=== PATIENT | female | born 1990 ===

== ENCOUNTER 2019-04-25 20:04 | Inpatient (IN) | payer OTHER ==
[2019-04-25 21:33] LABS: BASO % 0.3 % (0-2.0); EOS % 3.1 % (0-4.5); HEMATOCRIT 37.7 % (32.4-45.2); HEMOGLOBIN 12.6 GM/dL (10.7-15.3); LYMPH % 12.5 % (8-40); MCH 28.5 pg (25.7-33.7); MCHC 33.3 g/dl (32.0-36.0); MEAN CELL VOLUME 85.6 fl (80-96); MEAN PLT VOLUME 8.9 fl (7.5-11.1); MONO % 6.9 % (3.8-10.2); NEUT % 77.2 % (42.8-82.8); PLATELET COUNT 250 K/MM3 (134-434); RDW 15.2 % (11.6-15.6); RETICULOCYTES 2.35 % (0.5-1.5); WHITE BLOOD COUNT 11.3 K/mm3 (4.0-10.0)
[2019-04-25 21:45] LABS: INR 0.97 (0.83-1.09); PROTHROMBIN TIME (PATIENT) 11.5 SEC (9.7-13.0)
[2019-04-25 21:47] LABS: ACTIVATED PTT 29.4 SECONDS (25.2-36.5)
[2019-04-25 22:00] LABS: BLOOD UREA NITROGEN 6.9 mg/dL (7-18); CALCIUM 8.7 mg/dL (8.5-10.1); CREATININE 0.5 mg/dL (0.55-1.3); POTASSIUM 4.1 mmol/L (3.5-5.1); URIC ACID 3.1 mg/dL (2.6-7.2)
[2019-04-25 22:41] VITALS: BMI 39.0
[2019-04-25 22:53] LABS: PH,URINE 6.5 (5.0-8.0); URINE APPEARANCE CLEAR; URINE BILIRUBIN NEGATIVE (NEGATIVE); URINE COLOR YELLOW; URINE GLUCOSE (UA) NEGATIVE (NEGATIVE); URINE KETONE NEGATIVE (NEGATIVE); URINE LEUK ESTERASE NEGATIVE (NEGATIVE); URINE NITRITE NEGATIVE (NEGATIVE); URINE PROTEIN TRACE (NEGATIVE); URINE UROBILINOGEN 0.2 mg/dL (0.2-1.0)
[2019-04-26] MEDS ORDERED: ELECTROLYTE-148 SOLN 500 ML IV ONE (06:00)
[2019-04-26] MEDS ORDERED: CITRIC ACID/SODIUM CITRATE 30 ML UNIT-DOSE CUP PO ONE (06:00)
[2019-04-26] MEDS ORDERED: ELECTROLYTE-148 SOLN 1,000 ML IV SCH ×2 (06:30→11:15)
[2019-04-26] MEDS ORDERED: ACETAMINOPHEN 325 MG TABLET (FP) ONE (07:34)
[2019-04-26] MEDS ORDERED: PHENYLEPHRINE HCL 10 MG/1 ML SINGLE DOSE VIAL ONE ×2 (08:27→09:01)
[2019-04-26] MEDS ORDERED: morphine SULFATE/PF 0.5 MG/ML (2cc Syringe - QUVA) ONE (08:28)
[2019-04-26] MEDS ORDERED: CLINDAMYCIN PHOSPHATE 600 MG/4 ML VIAL ONE (08:45)
[2019-04-26] MEDS ORDERED: ONDANSETRON 4 MG/2 ML VIAL IVPUSH PRN (08:54)
[2019-04-26] MEDS ORDERED: OXYTOCIN 10 UNITS/ML VIAL ONE ×2 (09:00→09:01)
[2019-04-26] MEDS ORDERED: ePHEDrine SULFATE 50 MG/1 ML AMPULE ONE (09:01)
[2019-04-26] MEDS ORDERED: MIDAZOLAM HCL 2 MG/2 ML SINGLE DOSE VIAL ONE (09:08)
[2019-04-26] MEDS: OXYTOCIN 20 UNITS in 0.9% NS 20 UNIT/1,000 ML INFUS.BAG IV SCH ×2 (10:00→18:40)
[2019-04-26] MEDS ORDERED: OXYTOCIN 20 UNITS in 0.9% NS 20 UNIT/1,000 ML INFUS.BAG IV ONE (10:32)
[2019-04-26] MEDS ORDERED: METHYLERGONOVINE MALEATE 0.2 MG/1 ML AMP IM PRN (11:04)
[2019-04-26] MEDS ORDERED: oxyCODONE HCL 5 MG TABLET PO PRN ×2 (11:14)
[2019-04-26] MEDS ORDERED: ACETAMINOPHEN 325 MG TABLET (FP) PO PRN (11:14)
--- NOTE | 2019-04-26 11:20 | HP ---
Past Medical History - Admission Chief Complaint: high blood pressure , headache severe x 4 days History of Present Illness: mild pre eclampsia History Source: Patient Limitations to Obtaining History: No Limitations - Past Medical History SPEECH/LANGUAGE THERAPIST: No: Alzheimer's, CVA, Dementia, Migraine, Multiple Sclerosis, Peripheral Neuropathy, Parkinson's, Seizure, Syncope, TIA, Vertigo, Other Cardiovascular: No: AFIB, Aneurysm, Aortic Insufficiency, Aortic Stenosis, CAD, CHF, Deep Vein Thrombosis, HTN, Hyperlipdemia, [place], Mitral Insufficiency, Mitral Stenosis, Murmur, Pulmonary Hypertension, Other Pulmonary: No: Asthma, Bronchitis, Cancer, COPD, O2 Dependent, Pneumonia, Previously Intubated, Pulmonary Embolus, Pulmonary Fibrosis, Sleep Apnea, Other Gastrointestinal: No: Ascites, Cancer, Constipation, Crohn's Disease, Diverticulitis, Diverticulosis, Esophageal Varices, Gastritis, GERD, GI Bleed, Hemorrhoids, Hiatal Hernia, Inflamatory Bowel Disease, Irritable Bowel Disease, Pancreatitis, Peptic Ulcer Disease, Ulcerative Colitis, Other Hepatobiliary: No: Cirrhosis, Cholelithiasis, Cholecystitis, Choledocholithiasis , Hepatitis A, Hepatitis B, Hepatitis C, Other Renal/: No: Renal Failure, Renal Inusuff, BPH, Cancer, Hematuria, Hemodialysis , Neurogenic Bladder, Renal Calculi, UTI, Other Reproductive: No: Ectopic , Endometriosis, Fibroids, PID, Polycystic Ovary Syndrome, Postmenopausal, Other ...: 4 ...Para: 0 ...Term: 0 ...: 0 ...Spon : 2 ...Induced : 1 ...Multiple Gestation: 0 ...LMP: 07/28/18 ... Weeks Gestation by Dates: 38.5 ...EDC by Dates: 05/04/19 ...EDC by Sono: 05/01/19 Heme/Onc: No: Anemia, B12 Deficiency, Bleeding Disorder, Cancer, Current Chemotherapy, Current Radiation Therapy, Hemochromatosis, Hypercoaguable State, Myeloproliferative Synd, Sickle Cell Disease, Sickle Cell Trait, Thrombocytopenia, Other Infectious Disease: No: AIDS, C-Diff, Herpes Zoster, HIV, MRSA, STD's, Tuberculosis, VREF, Other Psych: No: Addictions, Anxiety, Bipolar, Depression, Panic, Psychosis, Schizophrenia, Other Musculoskeletal: No: Bursitis, Chronic low back pain, Hemiparesis, Hemiplegia, Osteoarthritis, Paraplegia, Other Rheumatology: No: Fibromyalgia, Gout, Lupus, Rheumatoid Arthritis, Sarcoidosis, Vasculitis, Other ENT: No: Allergic Rhinitis, Sinusitis, Other Endocrine: No: [place]'s Disease, [place]'s Disease, Diabetes Insipidus, Diabetes Mellitus, Hyperparathyroidism, Hyperthyroidism, Hypothyroidism, Osteopenia, SIADH, Other Dermatology: No: Basal Cell, Cellulitis, Eczema, Melanoma, Psoriasis, Squamous Cell, Other - Past Surgical History Past Surgical History: Yes: None. No: AAA Repair, AICD, Amputation, Appendectomy, Arthrosocopy, AV Fistula/Graft, Bariatric Surgery, Breast Biopsy, Bypass, CABG, Carotid Endarterectomy, Cataract Removal, Cholecystectomy, Colectomy, Colonoscopy, Colostomy, Craniotomy, , Cystectomy, Hernia Repair, Hysterectomy, Ileal Conduit, Ileosotomy, Joint Replacement, Kidney Transplant, Laminectomy, Liver Transplant, Mastectomy, Nephrectomy, Oopherectomy , Orchiectomy, Permanent Pacemaker, Prostatectomy, Splenectomy, Stent, Thoracotomy, TURP, Tonsillectomy, Tubal Ligation, Upper Endoscopy, Valve Replacement, Vasectomy, Vein Stripping/Ligation Hx Myomectomy: No Hx Transabdominal Cerclage: No - Advance Directives Advance Directives: Yes: Living Will - Smoking History Smoking history: Never smoked Have you smoked in the past 12 months: No - Alcohol/Substance Use Hx Alcohol Use: No History of Substance Use: reports: None - Social History Usual Living Arrangement: Yes: With Significant Other Do you think of yourself as: Straight/Heterosexual ADL: Independent History of Recent Travel: No Home Medications - Allergies Allergies/Adverse Reactions: Allergies Allergy/AdvReac Type Severity Reaction Status Date / Time Penicillins Allergy Intermediate Difficulty Verified 04/25/19 21:24 Breathing - Home Medications Home Medications: Ambulatory Orders Aspirin 81 mg PO DAILY 03/16/19 Vit 93/Iron Fum/Folic [ Formula Tablet] 1 each PO DAILY Family Medical History Family History: Denies Review of Systems - Review of Systems Constitutional: reports: No Symptoms Eyes: reports: No Symptoms HENT: reports: No Symptoms Neck: reports: No Symptoms Cardiovascular: reports: No Symptoms Respiratory: reports: No Symptoms Gastrointestinal: reports: No Symptoms Genitourinary: reports: No Symptoms Breasts: reports: No Symptoms Reported Musculoskeletal: reports: No Symptoms Integumentary: reports: No Symptoms Neurological: reports: No Symptoms Endocrine: reports: No Symptoms Hematology/Lymphatic: reports: No Symptoms Psychiatric: reports: No Symptoms Physical Exam - Maternity Vital Signs: Vital Signs Temperature 97.5 F L 04/26/19 09:55 Pulse Rate 74 04/26/19 10:55 Respiratory Rate 15 04/26/19 10:55 Blood Pressure 126/79 04/26/19 10:55 O2 Sat by Pulse Oximetry (%) 100 04/26/19 10:55 Constitutional: Yes: Well Nourished, No Distress, Calm Eyes: Yes: WNL, Conjunctiva Clear, EOM Intact HENT: Yes: WNL, Atraumatic, Normocephalic Neck: Yes: WNL, Supple, Trachea Midline Cardiovascular: Yes: WNL, Regular Rate and Rhythm Lungs: Clear to auscultation Breast(s): Yes: WNL - Abdominal Exam/OB Fundal Height: 38 Number of Fetuses: Single Presentation: Vertex Contractions: Yes Regularity: Irregular Intensity: Mild/Mod Monitor Mode: External Heart Rate Location: [facility] Category: I Accelerations: Uniform Decelerations: None - Vaginal Exam/OB Vaginal Bleediing: No Speculum Exam: No - Labs Lab Results: CBC, BMP 04/25/19 21:00 04/25/19 21:00 Assessment/Plan mild pre eclampsia, induction offered, pt declined, asked for c s
--- NOTE | 2019-04-26 11:23 | OP ---
Operative Note - Note: Operative Date: 04/26/19 Pre-Operative Diagnosis: pre eclampsia Operation: primary lt c s Findings: can x 3, ca leg x 1 , Post-Operative Diagnosis: Same as Pre-op Surgeon: Dakota Patterson Nuclear Fuels Reclamation Engineer: Ac Silver Anesthesiologist/SHADE CUTTER: Maurice Young Anesthesia: Spinal Estimated Blood Loss (mls): 700 (no complications ) Operative Report Dictated: Yes
[2019-04-26] MEDS ORDERED: IBUPROFEN 800 MG/8 ML IJ IVPB ONE (15:43)
[2019-04-26] MEDS: IBUPROFEN 800 MG/8 ML IJ IVPB PRN (15:50)
[2019-04-27] MEDS: IBUPROFEN 800 MG/8 ML IJ IVPB PRN (00:56)
[2019-04-27] MEDS: ACETAMINOPHEN 325 MG TABLET (FP) PO PRN ×4 (08:30→20:59)
--- NOTE | 2019-04-27 08:57 | PN ---
Progress Note, Physician Chief Complaint: s/p c section post op day one History of Present Illness: under spinal anesthesia with duramorph for post op pain control - Current Medication List Current Medications: Active Medications Acetaminophen (Tylenol -) 650 mg PO Q4H PRN PRN Reason: PAIN LEVEL 1-5 Last Admin: 04/27/19 08:30 Dose: 650 mg Acetaminophen (Tylenol -) 650 mg PO Q4H PRN PRN Reason: FEVER Bisacodyl (Dulcolax Suppository -) 10 mg RC PRN PRN PRN Reason: CONSTIPATION Diphenhydramine HCl (Benadryl Injection -) 25 mg IVPUSH Q4H PRN PRN Reason: Pruritis Diphtheria/Tetanus/Acell Pertussis (Boostrix -) 0.5 ml IM .ONCE ONE Stop: 04/27/19 10:01 Enoxaparin Sodium (Lovenox -) 40 mg SQ DAILY [facility] Parenteral Electrolytes (Plasma-Lyte 148 -) 1,000 mls @ 125 mls/hr IV ASDIR [facility] Last Admin: 04/26/19 13:27 Dose: Not Given Oxytocin/Sodium Chloride (Normal Saline+20 Units Oxytocin -) 20 unit in 1,000 mls @ 125 mls/hr IV ASDIR [facility] Last Admin: 04/26/19 18:40 Dose: 125 mls/hr Ibuprofen (Motrin -) 600 mg PO Q4H PRN PRN Reason: PAIN LEVEL 1 - 3 Ibuprofen (Caldolor Injection -) 800 mg IVPB Q8H PRN PRN Reason: PAIN LEVEL 6-10 Last Admin: 04/27/19 00:56 Dose: 800 mg Methylergonovine Maleate (Methergine Injection -) 0.2 mg IM Q4H PRN PRN Reason: Excessive Bleeding (L&D) Ondansetron HCl (Zofran Injection) 4 mg IVPUSH Q4H PRN PRN Reason: NAUSEA Oxycodone HCl (Roxicodone -) 5 mg PO Q4H PRN PRN Reason: PAIN LEVEL 4 - 6 Oxycodone HCl (Roxicodone -) 10 mg PO Q4H PRN PRN Reason: PAIN LEVEL 7 - 10 Last Admin: 04/27/19 08:29 Dose: 10 mg Senna/Docusate Sodium (Pericolace -) 2 tablet PO HS PRN PRN Reason: CONSTIPATION Simethicone (Mylicon -) 80 mg PO Q4H PRN PRN Reason: GAS - Objective Vital Signs: Vital Signs Temperature 98.0 F 04/27/19 06:00 Pulse Rate 91 H 04/27/19 06:00 Respiratory Rate 18 04/27/19 08:00 Blood Pressure 123/67 04/27/19 06:00 O2 Sat by Pulse Oximetry (%) 100 04/26/19 10:55 Constitutional: Yes: Well Nourished, Mild Distress Cardiovascular: Yes: WNL Respiratory: Yes: WNL Gastrointestinal: Yes: WNL Labs: CBC, BMP 04/25/19 21:00 04/25/19 21:00 INR, PTT INR 0.97 (0.83-1.09) 04/25/19 21:00 Assessment/Plan complaining of increased pain this am, no other anesthetic complications, advised to ask for oxycodone if needed, dept of anesthesia will sign off care at this time
[2019-04-27 09:12] LABS: BASO % 0.3 % (0-2.0); EOS % 2.5 % (0-4.5); HEMATOCRIT 28.3 % (32.4-45.2); HEMOGLOBIN 9.4 GM/dL (10.7-15.3); LYMPH % 16.7 % (8-40); MCH 28.8 pg (25.7-33.7); MCHC 33.1 g/dl (32.0-36.0); MEAN PLT VOLUME 8.6 fl (7.5-11.1); MONO % 7.2 % (3.8-10.2); NEUT % 73.3 % (42.8-82.8); PLATELET COUNT 217 K/MM3 (134-434); RBC 3.25 M/mm3 (3.60-5.2); RDW 15.1 % (11.6-15.6)
[2019-04-27] MEDS ORDERED: DIPHTH,PERTUSS(ACELL),TET 0.5 ML DISP.SYRIN IM ONE (10:00)
[2019-04-27] MEDS ORDERED: BISACODYL 10 MG SUPP.RECT RC PRN (11:04)
[2019-04-27] MEDS: IBUPROFEN 600 MG TABLET (FP) PO PRN ×3 (11:24→20:57)
[2019-04-27] MEDS: ENOXAPARIN NA (PORCINE) 40 MG/0.4 ML DISP.SYRIN SQ SCH (11:54)
--- NOTE | 2019-04-27 15:33 | PN ---
Post Progress Note Post Day: 1 Type of Delivery: Primary C/S Vital Signs: Vital Signs Temperature 98.2 F 04/27/19 09:00 Pulse Rate 88 04/27/19 09:00 Respiratory Rate 18 04/27/19 09:00 Blood Pressure 135/70 04/27/19 09:00 O2 Sat by Pulse Oximetry (%) 100 04/26/19 10:55 Breast Exam: Yes: Soft Uterus: Yes: Fundus Firm, Fundus below umbilicus, Non-tender Incision: Yes: Dressing dry and intact, Sutures intact Abdomen/GI: Yes: Abdomen soft, Passing flatus, Tolerating PO Lochia: Yes: Serosa Lochia, amount: Small Extremities: Yes: Calves non-tender Perineum: Yes: Intact Activity: Ambulating (doing well, all bp wnl, no need for magnesium ) - Labs Labs: CBC WBC 11.0 K/mm3 (4.0-10.0) H 04/27/19 08:10 RBC 3.25 M/mm3 (3.60-5.2) L 04/27/19 08:10 Hgb 9.4 GM/dL (10.7-15.3) L 04/27/19 08:10 Hct 28.3 % (32.4-45.2) L D 04/27/19 08:10 MCV 87.0 fl (80-96) 04/27/19 08:10 MCH 28.8 pg (25.7-33.7) 04/27/19 08:10 MCHC 33.1 g/dl (32.0-36.0) 04/27/19 08:10 RDW 15.1 % (11.6-15.6) 04/27/19 08:10 Plt Count 217 K/MM3 (134-434) 04/27/19 08:10 MPV 8.6 fl (7.5-11.1) 04/27/19 08:10 Absolute Neuts (auto) 8.0 K/mm3 (1.5-8.0) 04/27/19 08:10 Neutrophils % 73.3 % (42.8-82.8) 04/27/19 08:10 Lymphocytes % 16.7 % (8-40) D 04/27/19 08:10 Monocytes % 7.2 % (3.8-10.2) 04/27/19 08:10 Eosinophils % 2.5 % (0-4.5) 04/27/19 08:10 Basophils % 0.3 % (0-2.0) 04/27/19 08:10 Nucleated RBC % 0 % (0-0) 04/27/19 08:10 Retic Count 2.35 % (0.5-1.5) H 04/25/19 21:00 Haptoglobin 154 mg/dL (33-278) 04/25/19 21:00
[2019-04-27] MEDS: SIMETHICONE 80 MG TAB.CHEW (FP) PO PRN (20:56)
[2019-04-27] MEDS: SENNOSIDES/DOCUSATE COMBO (SENNA PLUS) TABLET (UD) PO PRN (20:57)
[2019-04-28] MEDS: SIMETHICONE 80 MG TAB.CHEW (FP) PO PRN ×6 (00:52→21:19)
[2019-04-28] MEDS: IBUPROFEN 600 MG TABLET (FP) PO PRN ×6 (00:52→21:20)
[2019-04-28] MEDS: ACETAMINOPHEN 325 MG TABLET (FP) PO PRN ×6 (00:53→21:20)
[2019-04-28] MEDS: ENOXAPARIN NA (PORCINE) 40 MG/0.4 ML DISP.SYRIN SQ SCH (09:30)
--- NOTE | 2019-04-28 14:46 | PN ---
Post Progress Note Post Day: 2 Type of Delivery: Primary C/S Vital Signs: Vital Signs Temperature 98.2 F 04/27/19 20:07 Pulse Rate 80 04/27/19 20:07 Respiratory Rate 20 04/27/19 20:07 Blood Pressure 127/85 04/27/19 20:07 O2 Sat by Pulse Oximetry (%) 100 04/26/19 10:55 Breast Exam: Yes: Soft Uterus: Yes: Fundus Firm, Fundus below umbilicus Incision: Yes: Dressing dry and intact, Sutures intact Abdomen/GI: Yes: Abdomen soft, Passing flatus, Tolerating PO Lochia: Yes: Serosa Lochia, amount: Small Extremities: Yes: Calves non-tender Perineum: Yes: Intact Activity: Ambulating - Labs Labs: CBC WBC 11.0 K/mm3 (4.0-10.0) H 04/27/19 08:10 RBC 3.25 M/mm3 (3.60-5.2) L 04/27/19 08:10 Hgb 9.4 GM/dL (10.7-15.3) L 04/27/19 08:10 Hct 28.3 % (32.4-45.2) L D 04/27/19 08:10 MCV 87.0 fl (80-96) 04/27/19 08:10 MCH 28.8 pg (25.7-33.7) 04/27/19 08:10 MCHC 33.1 g/dl (32.0-36.0) 04/27/19 08:10 RDW 15.1 % (11.6-15.6) 04/27/19 08:10 Plt Count 217 K/MM3 (134-434) 04/27/19 08:10 MPV 8.6 fl (7.5-11.1) 04/27/19 08:10 Absolute Neuts (auto) 8.0 K/mm3 (1.5-8.0) 04/27/19 08:10 Neutrophils % 73.3 % (42.8-82.8) 04/27/19 08:10 Lymphocytes % 16.7 % (8-40) D 04/27/19 08:10 Monocytes % 7.2 % (3.8-10.2) 04/27/19 08:10 Eosinophils % 2.5 % (0-4.5) 04/27/19 08:10 Basophils % 0.3 % (0-2.0) 04/27/19 08:10 Nucleated RBC % 0 % (0-0) 04/27/19 08:10 Retic Count 2.35 % (0.5-1.5) H 04/25/19 21:00 Haptoglobin 154 mg/dL (33-278) 04/25/19 21:00 Other Findings, Remarks: doing well, pt prefer to stay till tuesday.
--- NOTE | 2019-04-28 14:50 | DS ---
Physical Exam-LICENSING SPECIALIST Vital Signs: Vital Signs Temperature 98.2 F 04/27/19 20:07 Pulse Rate 80 04/27/19 20:07 Respiratory Rate 20 04/27/19 20:07 Blood Pressure 127/85 04/27/19 20:07 O2 Sat by Pulse Oximetry (%) 100 04/26/19 10:55 Constitutional: Yes: Well Nourished, No Distress, Calm Eyes: Yes: WNL, Conjunctiva Clear, EOM Intact HENT: Yes: WNL, Atraumatic, Normocephalic Neck: Yes: WNL, Supple, Trachea Midline Cardiovascular: Yes: WNL, Regular Rate and Rhythm Respiratory: Yes: WNL, Regular, CTA Bilaterally Gastrointestinal: Yes: WNL, Normal Bowel Sounds, Soft ...Rectal Exam: Yes: WNL Renal/: Yes: WNL Pelvis: Yes: WNL External Genitalia: Yes: Normal Internal Exam Deferred: No Vaginal Exam: Yes: Normal Cervix: Yes: Normal Uterus: Yes: Normal Adnexa: Normal: Bilateral ....Post : Yes: Uterus firm, Uterus non-tender Breast(s): Yes: WNL Musculoskeletal: Yes: WNL Extremities: Yes: WNL Edema: Yes Edema: LUE: 1+, RUE: 1+, LLE: 1+, RLE: 1+ Integumentary: Yes: WNL Wound/Incision: Yes: Clean/Dry, Well Approximated Neurological: Yes: WNL, Alert, Oriented ...Motor Strength: WNL Psychiatric: Yes: WNL, Alert, Oriented Labs: CBC, BMP 04/27/19 08:10 04/25/19 21:00 Delivery - Delivery Section: Primary Type of Anesthesia: Spinal EBL (cc): 700 Delivery, Single - Stages of Labor Date of Delivery: 04/26/19 Time of Delivery: 09:00 Time Placenta Delivered: 09:01 - Condition of Snuff Container Inspector/Horseback Excavator Present: Yes Name: Danny Agarwal Gender: Male Weight: 3.062 kg Position: OP Total Hours ROM (Hrs/Mins): 0Hrs/2Mins - 1 Minute Total Score: 9 5 Minutes Total Score: 9 - Feeding Plan Initial Plan: Exclusive throughout hospitalization Discharge Summary Problems reviewed: Yes Reason For Visit: ADMIT pre eclampsia Procedures: Principal: primary lt c s Other Procedures: none Hospital Course: uneventful , elevated bp before the delivery, Health Concerns: high blood pressure Plan of Treatment: oob as much as possible, normalize bp Goals: return to work in 8 weeks Condition: Good - Instructions Diet, Activity, Other Instructions: regular, routine post c s care Disposition: HOME - Home Medications Comprehensive Discharge Medication List: Ambulatory Orders Aspirin 81 mg PO DAILY 03/16/19 Vit 93/Iron Fum/Folic [ Formula Tablet] 1 each PO DAILY
[2019-04-28] MEDS: SENNOSIDES/DOCUSATE COMBO (SENNA PLUS) TABLET (UD) PO PRN (21:19)
[2019-04-29] MEDS: ACETAMINOPHEN 325 MG TABLET (FP) PO PRN ×5 (01:37→20:12)
[2019-04-29] MEDS: IBUPROFEN 600 MG TABLET (FP) PO PRN ×5 (01:37→20:12)
--- NOTE | 2019-04-29 07:14 | PN ---
Progress Note (short form) - Note Progress Note: POD # 3. Feels well. No c/o. Problems w nursing - needs support. Good pain control. Wants binder. Wants to go home tomorrow. PE: OK. Uterus firm. Abd. soft, flat. Incision clean and dry. Breasts soft. Lochia WNL. No CVA, etrem T. I/P: Doing well. Great recovery. Needs binder. consult tomorrow before discharge.
[2019-04-29] MEDS: ENOXAPARIN NA (PORCINE) 40 MG/0.4 ML DISP.SYRIN SQ SCH (09:51)
[2019-04-29] MEDS: SIMETHICONE 80 MG TAB.CHEW (FP) PO PRN ×3 (09:53→20:13)
[2019-04-30] MEDS: IBUPROFEN 600 MG TABLET (FP) PO PRN ×3 (01:14→12:21)
[2019-04-30] MEDS: SIMETHICONE 80 MG TAB.CHEW (FP) PO PRN ×3 (01:14→12:21)
[2019-04-30] MEDS: ACETAMINOPHEN 325 MG TABLET (FP) PO PRN ×3 (01:15→12:22)
--- NOTE | 2019-04-30 09:17 | PN ---
Post Progress Note Post Day: 4 Type of Delivery: Primary C/S Vital Signs: Vital Signs Temperature 98.1 F 04/29/19 22:00 Pulse Rate 72 04/29/19 22:00 Respiratory Rate 20 04/29/19 22:00 Blood Pressure 144/92 04/29/19 22:00 O2 Sat by Pulse Oximetry (%) 100 04/26/19 10:55 Breast Exam: Yes: Soft Uterus: Yes: Fundus Firm Incision: Yes: Dressing dry and intact, Sutures intact Abdomen/GI: Yes: Abdomen soft, Passing flatus, Tolerating PO Lochia: Yes: Serosa Lochia, amount: Small Extremities: Yes: Calves non-tender Perineum: Yes: Intact Activity: Ambulating (dc pt home today ) - Labs Labs: CBC WBC 11.0 K/mm3 (4.0-10.0) H 04/27/19 08:10 RBC 3.25 M/mm3 (3.60-5.2) L 04/27/19 08:10 Hgb 9.4 GM/dL (10.7-15.3) L 04/27/19 08:10 Hct 28.3 % (32.4-45.2) L D 04/27/19 08:10 MCV 87.0 fl (80-96) 04/27/19 08:10 MCH 28.8 pg (25.7-33.7) 04/27/19 08:10 MCHC 33.1 g/dl (32.0-36.0) 04/27/19 08:10 RDW 15.1 % (11.6-15.6) 04/27/19 08:10 Plt Count 217 K/MM3 (134-434) 04/27/19 08:10 MPV 8.6 fl (7.5-11.1) 04/27/19 08:10 Absolute Neuts (auto) 8.0 K/mm3 (1.5-8.0) 04/27/19 08:10 Neutrophils % 73.3 % (42.8-82.8) 04/27/19 08:10 Lymphocytes % 16.7 % (8-40) D 04/27/19 08:10 Monocytes % 7.2 % (3.8-10.2) 04/27/19 08:10 Eosinophils % 2.5 % (0-4.5) 04/27/19 08:10 Basophils % 0.3 % (0-2.0) 04/27/19 08:10 Nucleated RBC % 0 % (0-0) 04/27/19 08:10 Retic Count 2.35 % (0.5-1.5) H 04/25/19 21:00 Haptoglobin 154 mg/dL (33-278) 04/25/19 21:00
[2019-04-30] MEDS: ENOXAPARIN NA (PORCINE) 40 MG/0.4 ML DISP.SYRIN SQ SCH (10:05)
[2019-04-30 11:30] VITALS: BP 147/94; PULSE 83; TEMP 98.5
--- NOTE | 2019-05-03 16:05 | PATH ---
Surgical Pathology Report Patient Name: QUAN DSOUZA [facility]. Rec. #: [id number] /Age/Gender: 1990 (Age: 28) / F Account: [id number] Location: [facility] OBS/FORESTRY PILOT Taken: 04/26/2019 Received: 04/27/2019 Reported: 05/03/2019 Physicians: Dakota Patterson MD Specimen(s) Received PLACENTA Clinical History , 39.1 weeks, mild preeclampsia Final Diagnosis PLACENTA, SECTION: 465 G THIRD TRIMESTER PLACENTA WITH TRIVASCULAR UMBILICAL CORD AND UNREMARKABLE PLACENTAL MEMBRANES. Electronically Signed Roxanne Milian M.D. Gross Description The specimen is received fresh labeled placenta and is a 465 gram, 17.5 x 16.0 x 3.0 cm. placenta with attached membranes and umbilical cord. The attached membranes are mcclellan, translucent with focal opacities and insert marginally. The umbilical cord measures 50 cm. in length and averages 1 cm. in diameter. The cord inserts eccentrically, 6 cm. to the nearest margin. No true knots or strictures are identified. Cut surface of the umbilical cord reveals 3 vessels. The surface is zhao-blue with minimal fibrin deposition and appropriate caliber vessels. The maternal surface is red-brown with focal defects. Sectioning reveals red-brown, spongy parenchyma. No lesions are identified. Solar Sales Consultant sections are submitted in three cassettes as follows: 1- membrane rolls and umbilical cord; 2-3- full thickness sections of placenta. 05/01/2019 [facility]05/01/2019
== END 2019-04-30 16:00 | disposition home or self-care (01) | DRG 540 ==
LOC: JLDR 20:04 → J3W 04-26 16:40
PROVIDERS: ADMIT Obstetrics & Gynecology; ATTEND Obstetrics & Gynecology
PROC: 10D00Z1 Extraction of Products of Conception, Low, Open Approach (ICD-10-PCS; principal; 2019-04-26)
DX: O14.04 Mild to moderate pre-eclampsia, complicating childbirth (principal); Z3A.38 38 weeks gestation of pregnancy; Z37.0 Single live birth
CPT/HCPCS: 36415; 80048; 81003; 82977; 83010; 84450; 84460; 84550; 85025; 85044; 85610; 85730; 86593; 86762; 86850; 86900; 86901; 87389; 90715

== ENCOUNTER 2022-02-11 06:15 | Inpatient (IN) | payer OTHER ==
[2022-02-11] MEDS: ELECTROLYTE-148 SOLN 1,000 ML IV SCH (07:30)
[2022-02-11] MEDS ORDERED: PHENYLEPHRINE HCL 10 MG/1 ML SINGLE DOSE VIAL ONE (07:58)
[2022-02-11] MEDS ORDERED: ELECTROLYTE-148 SOLN 500 ML IV ONE (07:58)
[2022-02-11] MEDS ORDERED: ceFAZolin SODIUM 1 GM VIAL ONE (07:59)
[2022-02-11] MEDS ORDERED: ONDANSETRON 4 MG/2 ML VIAL ONE (07:59)
[2022-02-11] MEDS ORDERED: SODIUM CHLORIDE 0.9% P/F 10 ML VIAL IJ ONE (08:00)
[2022-02-11] MEDS ORDERED: morphine SULFATE/PF 1 MG/2 ML (2cc Syringe - QUVA) ONE (08:02)
[2022-02-11] MEDS ORDERED: OXYTOCIN 10 UNITS/ML VIAL ONE ×2 (08:31→08:33)
[2022-02-11] MEDS ORDERED: CITRIC ACID/SODIUM CITRATE 30 ML UNIT-DOSE CUP PO ONE (09:22)
[2022-02-11] MEDS ORDERED: METHYLERGONOVINE MALEATE 0.2 MG/1 ML AMP IM PRN (09:23)
[2022-02-11] MEDS ORDERED: IBUPROFEN 800 MG/8 ML IJ IVPB PRN (09:23)
[2022-02-11] MEDS: OXYTOCIN 20 UNITS in 0.9% NS 20 UNIT/1,000 ML INFUS.BAG IV SCH ×2 (09:30→19:37)
[2022-02-11] MEDS ORDERED: ONDANSETRON 4 MG/2 ML VIAL IVPUSH PRN (09:50)
[2022-02-11] MEDS ORDERED: morphine SULFATE/PF 1 MG/2 ML (2cc Syringe - QUVA) EP ONE (09:50)
[2022-02-11 10:31] VITALS: BMI 36.1
[2022-02-11] MEDS: PRENATAL VITAMINS W/ FOLIC ACID TABLET (FP) PO SCH (11:21)
[2022-02-11 14:31] LABS: HIV INTERPRETATION NEGATIVE (NEGATIVE)
[2022-02-11] MEDS: SIMETHICONE 80 MG TAB.CHEW (FP) PO PRN (19:43)
[2022-02-11] MEDS ORDERED: oxyCODONE HCL 5 MG TABLET PO PRN ×2 (21:23)
[2022-02-12] MEDS: SIMETHICONE 80 MG TAB.CHEW (FP) PO PRN ×5 (00:17→23:50)
[2022-02-12] MEDS: ACETAMINOPHEN 325 MG TABLET (FP) PO PRN ×2 (05:48→18:42)
[2022-02-12 08:37] LABS: BASO % 0.3 % (0-2.0); EOS % 2.7 % (0-4.5); HEMATOCRIT 32.5 % (32.4-45.2); HEMOGLOBIN 10.6 GM/dL (10.7-15.3); LYMPH % 16.9 % (8-40); MCH 26.3 pg (25.7-33.7); MCHC 32.7 g/dl (32.0-36.0); MEAN CELL VOLUME 80.4 fl (80-96); MEAN PLT VOLUME 8.5 fl (7.5-11.1); MONO % 6.4 % (3.8-10.2); NEUT % 73.7 % (42.8-82.8); PLATELET COUNT 236 10^3/uL (134-434); RBC 4.04 M/mm3 (3.60-5.2); RDW 15.8 % (11.6-15.6); WHITE BLOOD COUNT 10.7 K/mm3 (4.0-10.0)
[2022-02-12] MEDS: ELECTROLYTE-148 SOLN 1,000 ML IV SCH (09:07)
[2022-02-12] MEDS: PRENATAL VITAMINS W/ FOLIC ACID TABLET (FP) PO SCH (09:17)
[2022-02-12] MEDS ORDERED: BISACODYL 10 MG SUPP.RECT RC PRN (09:23)
[2022-02-12] MEDS: IBUPROFEN 600 MG TABLET (FP) PO PRN ×3 (13:18→23:50)
[2022-02-12] MEDS: SENNOSIDES/DOCUSATE COMBO (SENNA PLUS) TABLET (UD) PO PRN (19:15)
[2022-02-13] MEDS: SIMETHICONE 80 MG TAB.CHEW (FP) PO PRN ×2 (03:41→08:47)
[2022-02-13] MEDS: IBUPROFEN 600 MG TABLET (FP) PO PRN ×4 (03:41→19:45)
[2022-02-13] MEDS: PRENATAL VITAMINS W/ FOLIC ACID TABLET (FP) PO SCH ×2 (08:50→13:33)
[2022-02-13] MEDS: SENNOSIDES/DOCUSATE COMBO (SENNA PLUS) TABLET (UD) PO PRN (19:46)
[2022-02-14 03:23] VITALS: RESP 16
[2022-02-14 09:12] VITALS: BP 128/79; PULSE 62; TEMP 98.2
[2022-02-14] MEDS: PRENATAL VITAMINS W/ FOLIC ACID TABLET (FP) PO SCH (09:26)
[2022-02-14] MEDS: SIMETHICONE 80 MG TAB.CHEW (FP) PO PRN (09:26)
== END 2022-02-14 14:30 | disposition home or self-care (01) | DRG 540 ==
LOC: JLDR 06:15 → J3W 11:00
PROVIDERS: ADMIT Obstetrics & Gynecology; ATTEND Obstetrics & Gynecology
PROC: 10D00Z1 Extraction of Products of Conception, Low, Open Approach (ICD-10-PCS; principal; 2022-02-11)
DX: O34.211 Maternal care for low transverse scar from previous cesarean delivery (principal); Z87.59 Personal history of other complications of pregnancy, childbirth and the puerperium; Z3A.39 39 weeks gestation of pregnancy; Z37.0 Single live birth; Z79.82 Long term (current) use of aspirin
CPT/HCPCS: 36415; 85025; 85610; 85730; 86780; 86850; 86900; 86901; 87389; 88307-TC; C9803-CS; U0003; U0005